=== PATIENT | male | born 1995 | race American Indian/Alaskan Native ===

== ENCOUNTER 2019-02-15 08:56 | Emergency (ER) | payer OTHER ==
[2019-02-15 09:01] VITALS: BP 108/91
--- NOTE | 2019-02-15 09:33 | Emergency Department Report ---
HPI - General Chief Complaint: Sore Throat Time Seen by Provider: 02/15/19 09:27 - HPI HPI: 23-year-old male presents to the emergency department with a four-day history of a sore throat and some pain with swallowing. He denies any difficulty swallowing liquids or his own secretions. He says that he has had strep throat in the past and this feels similar. No recent travel or sick contacts at home. He denies any other past medical history. No primary care physician for follow-up. ED Past Medical Hx - Past Medical History Previous Medical History?: No - Surgical History Past Surgical History?: No - Social History Smoking Status: Never Smoker Substance Use Type: None - Medications Home Medications: Home Medications Medication Instructions Recorded Confirmed Last Taken Type Amoxicillin [Trimox CAP] 500 mg PO Q8H #30 capsule 02/15/19 Unknown Rx ED Review of Systems ROS: Stated complaint: STREP THROAT/HARD TO SWALLOW Other details as noted in HPI Comment: All other systems reviewed and negative Constitutional: denies: chills, fever Eyes: denies: eye pain, vision change ENT: throat pain. denies: ear pain Respiratory: denies: cough, shortness of breath Cardiovascular: denies: chest pain, palpitations Gastrointestinal: denies: abdominal pain, vomiting Genitourinary: denies: dysuria, frequency Musculoskeletal: denies: back pain, arthralgia Skin: denies: rash, lesions Neurological: denies: headache, weakness Physical Exam - Physical Exam Vital Signs: Vital Signs 02/15/19 08:59 Pulse Rate 98 H Respiratory 18 Rate Blood Pressure 108/91 O2 Sat by Pulse 95 Oximetry Physical Exam: GENERAL: The patient is well-developed well-nourished. HEENT: Normocephalic. Atraumatic. Patient has moist mucous membranes. Patient has bilateral tonsillar hypertrophy and erythema with bilateral exudates. No drooling or trismus. EYES: Extraocular motions are intact. Pupils are equal and reactive to light bilaterally. NECK: Supple. Trachea is midline. CHEST/LUNGS: Clear to auscultation. There is no respiratory distress noted. HEART/CARDIOVASCULAR: Regular. There is no tachycardia. There is no obvious murmur. ABDOMEN: There is no abdominal distention. SKIN: Skin is warm and dry. NEURO: The patient is awake, alert, and oriented. The patient is cooperative. The patient has normal speech. MUSCULOSKELETAL: There is no tenderness or deformity. There is no evidence of acute injury. ED Course Vital Signs 02/15/19 08:59 Pulse Rate 98 H Respiratory 18 Rate Blood Pressure 108/91 O2 Sat by Pulse 95 Oximetry ED Medical Decision Making - Medical Decision Making Patient presents with a 3 to four-day history of a sore throat. His tonsils are enlarged, erythematous and have bilateral exudates. He does not have any drooling or trismus, change in his voice, signs of sepsis. He will be discharged home with antibiotics and to follow up with a primary care physician. He will return to the ER with any worsening of his symptoms or any acute distress. - Differential Diagnosis strep pharyngitis, viral pharyngitis, mononucleosis, retropharyngeal absces Critical Care Time: No Critical care attestation.: If time is entered above; I have spent that time in minutes in the direct care of this critically ill patient, excluding procedure time. ED Disposition Clinical Impression: Strep pharyngitis Disposition: TO HOME OR SELFCARE Is pt being admited?: No Condition: Stable Instructions: Amoxicillin (By mouth), Strep Throat (ED) Additional Instructions: Please follow up with a primary care physician in the next few days. You will need to do lots of handwashing and avoid sharing any food or drink with anyone to avoid getting anyone else sick. Return to the emergency Department with any worsening of your symptoms or any acute distress. Take the antibiotics as prescribed. Prescriptions: Amoxicillin [Trimox CAP] 500 mg PO Q8H #30 capsule Referrals: JORDAN GOMEZ MD [Staff Physician] - 3-5 Days [facility] [Outside] - 3-5 Days Time of Disposition: 09:33
[2019-02-15] MEDS ORDERED: TORADOL IM ONE (09:38)
== END 2019-02-15 09:59 | disposition home or self-care (01) ==
LOC: ED 08:56
DX: J02.0 Streptococcal pharyngitis (principal)
CPT/HCPCS: 96372; 99282; J1885

== ENCOUNTER 2019-02-18 08:54 | Emergency (ER) | payer SELFPAY ==
[2019-02-18 09:00] VITALS: BP 142/90
[2019-02-18] MEDS ORDERED: DECADRON IM ONE (09:25)
[2019-02-18] MEDS ORDERED: ZOFRAN ODT PO ONE (09:26)
--- NOTE | 2019-02-18 09:26 | Emergency Department Report ---
Minor Respiratory - HPI Chief Complaint: Sore Throat Stated Complaint: N/V Time Seen by Provider: 02/18/19 09:25 Duration: 5 Days Pain Location: Throat Severity: mild Minor Respiratory: Yes Sore Throat, Yes Able to Tolerate Fluids (STATES VOMITING BUT DRINKING MELLOW YELLOW IN ER), No Rhinorrhea, No Ear Pain, No Cough, No Sick Contacts, No Hemoptysis, No Chest Pain, No Shortness of Breath, No Fever Other History: CO SORE THROAT. HERE RECENT AND GIVEN AMOX. STATES TAKING IT BUT NOW VOMITING. HE IS TAKING PO ONE EXAM. HE STATES HE HAS HAD STREP IN PAST AND IT DID NOT MAKE HIM ILL. ED Review of Systems ROS: Stated complaint: N/V Other details as noted in HPI Comment: All other systems reviewed and negative Constitutional: denies: chills Eyes: denies: eye pain ENT: as per HPI, throat pain Respiratory: denies: cough Cardiovascular: denies: palpitations Endocrine: denies: excessive sweating Gastrointestinal: as per HPI Genitourinary: denies: urgency Skin: denies: rash Neurological: denies: headache Psychiatric: denies: depression Hematological/Lymphatic: denies: easy bleeding ED Past Medical Hx - Past Medical History Previous Medical History?: No - Surgical History Past Surgical History?: No - Family History Family history: no significant - Social History Smoking Status: Never Smoker Substance Use Type: None - Medications Home Medications: Home Medications Medication Instructions Recorded Confirmed Last Taken Type Amoxicillin [Trimox CAP] 500 mg PO Q8H #30 capsule 02/15/19 Unknown Rx Ondansetron [Zofran Odt] 4 mg PO Q8HR PRN #10 tab.rapdis 02/18/19 Unknown Rx Minor Respiratory Exam - Exam General: Vital signs noted. No distress. Alert and acting appropriately. HEENT: Yes Pharyngeal Erythema, Yes Moist Mucous Membranes, No Pharyngeal Exudates (LARGE AND INFLAMED TONSILS), No Rhinorrhea, No Conjuctival Injection, No Frontal Tenderness, No Maxillary Tenderness Ear: Neither TM Bulge, Neither TM Erythema, Neither EAC Pain, Neither EAC Discharge Neck: Yes Supple, No Adenopathy Lungs: Yes Good Air Exchange, No Wheezes, No Ronchi, No Stridor, No Cough, No Labored Respirations, No Retractions, No Use of Accessory Muscles, No Other Abnormal Lung Sounds Heart: Yes Regular, No Murmur Abdomen: Yes Normal Bowel Sounds, No Tenderness, No Peritoneal Signs Skin: No Rash, No Edema Neurologic: Alert and oriented, no deficits. Musculoskeletal: Unremarkable. ED Course Vital Signs 02/18/19 02/18/19 08:59 09:09 Temperature 98.6 F 98.6 F Pulse Rate 103 H 103 H Respiratory 18 20 Rate Blood Pressure 142/90 Blood Pressure 142/90 [Right] O2 Sat by Pulse 95 95 Oximetry ED Medical Decision Making - Medical Decision Making Vital Signs 02/18/19 02/18/19 08:59 09:09 Temperature 98.6 F 98.6 F Pulse Rate 103 H 103 H Respiratory 18 20 Rate Blood Pressure 142/90 Blood Pressure 142/90 [Right] O2 Sat by Pulse 95 95 Oximetry MEDICATED IN ER TAKING PO VSS DC HOME WITH PCP FOLLOW UP Critical care attestation.: If time is entered above; I have spent that time in minutes in the direct care of this critically ill patient, excluding procedure time. ED Disposition Clinical Impression: Strep pharyngitis, Vomiting Disposition: DC-01 TO HOME OR SELFCARE Is pt being admited?: No Does the pt Need Aspirin: No Condition: Stable Instructions: Strep Throat (ED), Tonsillitis (ED) Additional Instructions: HYDRATE WELL WITH WATER MEDS ORDERED- CONTINUE AMOX MOTRIN AND TYLENOL FOR PAIN OR FEVER DIET TOLERATED FOLLOW UP PCP REFERRAL BELOW STREP CAN CAUSE COMPLICATIONS FOLLOW UP INSTRUCTED XRAY NORMAL TODAY Prescriptions: Ondansetron [Zofran Odt] 4 mg PO Q8HR PRN #10 tab.rapdis PRN Reason: Vomiting Referrals: [facility] [Other] - 3-5 Days Time of Disposition: 09:55
--- NOTE | 2019-02-18 09:39 | XRay Report ---
ROUTINE CHEST, TWO VIEWS: HISTORY: Fever. The trachea, heart, mediastinal contour, lung prado and bony thorax are unremarkable. IMPRESSION: Unremarkable chest x-ray.
[2019-02-18] MEDS ORDERED: BICILLIN L-A IM ONE (09:52)
== END 2019-02-18 10:16 | disposition home or self-care (01) ==
LOC: ED 08:54
DX: J02.0 Streptococcal pharyngitis (principal); R11.10 Vomiting, unspecified
CPT/HCPCS: 71046; 96372; 99283; J0561; J1100; Q0162